=== PATIENT | female | born 1930 | race Caucasian/White ===

== ENCOUNTER 2016-10-28 16:15 | Inpatient (IN) | payer MEDICARE ==
[~2016-10-28] VITALS: Ht 165.1 cm; Wt 81.2 kg
[~2016-10-28 16:15] MED LIST: DUONEB3 ML INH; ESCI10TA54 PO; ESCI5TAB10 PO; FERR-63 PO; LUBI24CA5 PO; MULT-1146 PO; POLY17PO3 PO; SYN200 PO; THE3 PO; TRIA1CAP6 PO
[2016-10-28] MEDS ORDERED: ALPRAZOLAM 0.25 MG TABLET PO PRN (17:45)
[2016-10-28] MEDS ORDERED: DEXTROSE 50% WATER 50ML SYRINGE IV PRN (18:00)
[2016-10-28 18:28] VITALS: BP 129/56
[2016-10-28 20:00] VITALS: BP 127/69
[2016-10-28] MEDS: IPRATROPIUM/ALBUTEROL 0.5-3(2.5)MG/3ML NEB HHN SCH (20:13)
[2016-10-28] MEDS ORDERED: INSULIN LISPRO 100 UNITS/ML SUBCUT SCH (21:00)
[2016-10-28] MEDS: INSULIN LISPRO 100 UNITS/ML SUBCUT SCH (21:00)
[2016-10-28] MEDS: BLOOD SUGAR DIAGNOSTIC STRIP TEST SCH (21:00)
[2016-10-28] MEDS: ENOXAPARIN 30MG/0.3ML SYR SUBCUT SCH (22:33)
[2016-10-29] MEDS: IPRATROPIUM/ALBUTEROL 0.5-3(2.5)MG/3ML NEB HHN SCH ×4 (02:14→20:46)
[2016-10-29] MEDS: BLOOD SUGAR DIAGNOSTIC STRIP TEST SCH ×4 (06:10→20:54)
[2016-10-29] MEDS: LEVOTHYROXINE SODIUM 100MCG TABLET PO SCH (06:11)
[2016-10-29] MEDS: INSULIN LISPRO 100 UNITS/ML SUBCUT SCH ×4 (06:43→20:54)
[2016-10-29 07:21] VITALS: BP 162/72
[2016-10-29 07:55] LABS: BASOPHILS % 1.7 % (0.0-2.0); EOSINOPHILS % 5.4 % (0.0-5.0); HEMATOCRIT. 29.7 % (36.0-48.0); HEMOGLOBIN. 9.6 g/dL (12.0-16.0); LYMPHOCYTES % 21.4 % (20.0-50.0); MEAN CORPUSCULAR HEMOGLOBIN 30.7 pg (28.0-32.0); MEAN CORPUSCULAR VOLUME 95.1 fL (81.0-99.0); MEAN PLATELET VOLUME 7.4 fl (7.4-10.4); MONOCYTES % 9.5 % (2.0-8.0); PLATELET 219 x1000/uL (130-400); RED BLOOD CELL COUNT 3.12 mill/uL (4.2-5.4); RED CELL DISTRIBUTION WIDTH 16.3 % (11.6-14.6)
[2016-10-29] MEDS: FERROUS SULFATE 325MG TABLET PO SCH ×2 (08:15→17:13)
[2016-10-29] MEDS: POLYETHYLENE GLYCOL 3350 (17GM) 1 DOSE PACK PO SCH ×3 (08:15→20:53)
[2016-10-29] MEDS: ENOXAPARIN 30MG/0.3ML SYR SUBCUT SCH (08:15)
[2016-10-29] MEDS: POTASSIUM CHLORIDE 20MEQ TABLET SR PO SCH (08:15)
[2016-10-29 08:38] LABS: PREALBUMIN 18.7 mg/dL (20.0-40.0)
[2016-10-29] MEDS: LACTULOSE 20G/30ML UDC PO SCH ×3 (09:39→16:53)
[2016-10-29] MEDS: DOCUSATE SODIUM 100MG CAPSULE PO SCH (17:13)
[2016-10-29 20:49] VITALS: BP 126/96
[2016-10-30 00:06] LABS: CLARITY URINE CLEAR (CLEAR); COLOR URINE YELLOW (YELLOW); GLUCOSE URINE NEGATIVE (NEGATIVE); KETONES URINE NEGATIVE (NEGATIVE); LEUKOCYTE ESTERASE URINE 1+ (NEGATIVE); NITRITE URINE NEGATIVE (NEGATIVE); OCCULT BLOOD URINE NEGATIVE (NEGATIVE); PROTEIN URINE NEGATIVE (NEGATIVE); SPECIFIC GRAVITY URINE 1.011 (1.005-1.030); UROBILINOGEN URINE 0.2 E.U./dL (0.2-1.0)
[2016-10-30] MEDS: IPRATROPIUM/ALBUTEROL 0.5-3(2.5)MG/3ML NEB HHN SCH ×4 (01:23→21:07)
[2016-10-30] MEDS: LEVOTHYROXINE SODIUM 100MCG TABLET PO SCH (06:17)
[2016-10-30] MEDS: BLOOD SUGAR DIAGNOSTIC STRIP TEST SCH ×4 (06:19→20:51)
[2016-10-30 07:01] LABS: BASOPHILS % 1.1 % (0.0-2.0); EOSINOPHILS % 5.1 % (0.0-5.0); HEMATOCRIT. 29.6 % (36.0-48.0); HEMOGLOBIN. 9.7 g/dL (12.0-16.0); MEAN CORPUSCULAR HEMOGLOBIN 31.1 pg (28.0-32.0); MEAN CORPUSCULAR VOLUME 94.8 fL (81.0-99.0); MEAN PLATELET VOLUME 6.8 fl (7.4-10.4); MONOCYTES % 9.9 % (2.0-8.0); NEUTROPHILS % 61.9 % (40.0-76.0); PLATELET 211 x1000/uL (130-400); RED BLOOD CELL COUNT 3.12 mill/uL (4.2-5.4); RED CELL DISTRIBUTION WIDTH 16.7 % (11.6-14.6)
[2016-10-30] MEDS: INSULIN LISPRO 100 UNITS/ML SUBCUT SCH ×4 (07:02→20:51)
[2016-10-30 07:19] VITALS: BP 147/66
[2016-10-30 08:00] LABS: CARBON DIOXIDE 27 mEq/L (21-32); CHLORIDE 102 mEq/L (98-107); PHOSPHORUS 3.4 mg/dL (2.5-4.9)
[2016-10-30 08:10] LABS: HDL CHOLESTEROL 47 mg/dL (40-59); LDL CHOLESTEROL 84 mg/dL (5-100); TOTAL IRON BINDING CAPACITY 274 ug/dL (250-450)
[2016-10-30 08:16] LABS: FOLIC ACID (FOLATE) SERUM 17.2 ng/mL (>5.38)
[2016-10-30] MEDS: FERROUS SULFATE 325MG TABLET PO SCH ×2 (08:42→16:49)
[2016-10-30] MEDS: POTASSIUM CHLORIDE 20MEQ TABLET SR PO SCH (08:42)
[2016-10-30] MEDS: DOCUSATE SODIUM 100MG CAPSULE PO SCH ×2 (08:43→16:49)
[2016-10-30] MEDS: ENOXAPARIN 30MG/0.3ML SYR SUBCUT SCH (08:43)
[2016-10-30] MEDS: LACTULOSE 20G/30ML UDC PO SCH ×3 (14:00→16:51)
[2016-10-30] MEDS: CYANOCOBALAMIN 1000MCG/ML VIAL IM SCH (16:50)
[2016-10-30 20:00] VITALS: BP 142/67
[2016-10-30] MEDS ORDERED: IRON SUCROSE COMPLEX 100 MG in SODIUM CHLORIDE 0.9% 100 ML IV SCH (20:00)
[2016-10-30] MEDS: POLYETHYLENE GLYCOL 3350 (17GM) 1 DOSE PACK PO SCH (20:51)
[2016-10-31] MEDS: IPRATROPIUM/ALBUTEROL 0.5-3(2.5)MG/3ML NEB HHN SCH ×4 (02:09→21:03)
[2016-10-31] MEDS: LEVOTHYROXINE SODIUM 100MCG TABLET PO SCH (06:30)
[2016-10-31] MEDS: BLOOD SUGAR DIAGNOSTIC STRIP TEST SCH ×4 (06:32→21:40)
[2016-10-31] MEDS: INSULIN LISPRO 100 UNITS/ML SUBCUT SCH ×4 (07:04→21:00)
[2016-10-31 08:00] VITALS: BP 140/64
[2016-10-31] MEDS: CYANOCOBALAMIN 1000MCG/ML VIAL IM SCH (09:05)
[2016-10-31] MEDS: POTASSIUM CHLORIDE 20MEQ TABLET SR PO SCH (09:05)
[2016-10-31] MEDS: DOCUSATE SODIUM 100MG CAPSULE PO SCH ×2 (09:05→16:56)
[2016-10-31] MEDS: FERROUS SULFATE 325MG TABLET PO SCH ×3 (09:05→16:56)
[2016-10-31] MEDS: ENOXAPARIN 40MG/0.4ML SYR SUBCUT SCH (09:05)
[2016-10-31 13:49] LABS: BASOPHILS % 1.2 % (0.0-2.0); EOSINOPHILS % 4.2 % (0.0-5.0); HEMATOCRIT. 30.7 % (36.0-48.0); HEMOGLOBIN. 10.4 g/dL (12.0-16.0); MEAN CORPUSCULAR HEMOGLOBIN 32.2 pg (28.0-32.0); MEAN CORPUSCULAR VOLUME 94.6 fL (81.0-99.0); MEAN PLATELET VOLUME 7.4 fl (7.4-10.4); MONOCYTES % 8.9 % (2.0-8.0); NEUTROPHILS % 69.7 % (40.0-76.0); PLATELET 207 x1000/uL (130-400); RED BLOOD CELL COUNT 3.24 mill/uL (4.2-5.4); RED CELL DISTRIBUTION WIDTH 16.5 % (11.6-14.6)
[2016-10-31] MEDS: LACTULOSE 20G/30ML UDC PO SCH ×2 (16:56→21:39)
[2016-10-31 20:08] VITALS: BP 153/72
[2016-10-31] MEDS: POLYETHYLENE GLYCOL 3350 (17GM) 1 DOSE PACK PO SCH (21:00)
[2016-10-31] MEDS: DILTIAZEM HCL 30MG TABLET PO SCH (21:40)
[2016-11-01] MEDS: IPRATROPIUM/ALBUTEROL 0.5-3(2.5)MG/3ML NEB HHN SCH ×3 (01:38→20:49)
[2016-11-01] MEDS: DILTIAZEM HCL 30MG TABLET PO SCH ×3 (06:00→21:43)
[2016-11-01] MEDS: LEVOTHYROXINE SODIUM 100MCG TABLET PO SCH (06:12)
[2016-11-01] MEDS: BLOOD SUGAR DIAGNOSTIC STRIP TEST SCH ×4 (06:12→21:41)
[2016-11-01 07:11] LABS: BASOPHILS % 1.3 % (0.0-2.0); EOSINOPHILS % 4.8 % (0.0-5.0); HEMATOCRIT. 28.3 % (36.0-48.0); HEMOGLOBIN. 9.3 g/dL (12.0-16.0); LYMPHOCYTES % 23.4 % (20.0-50.0); MEAN CORPUSCULAR VOLUME 94.8 fL (81.0-99.0); MEAN PLATELET VOLUME 7.3 fl (7.4-10.4); MONOCYTES % 10.6 % (2.0-8.0); NEUTROPHILS % 59.9 % (40.0-76.0); PLATELET 192 x1000/uL (130-400); RED BLOOD CELL COUNT 2.99 mill/uL (4.2-5.4); RED CELL DISTRIBUTION WIDTH 16.5 % (11.6-14.6)
[2016-11-01 08:00] VITALS: BP 158/74
[2016-11-01] MEDS: LACTULOSE 20G/30ML UDC PO SCH ×4 (08:47→23:00)
[2016-11-01] MEDS: POTASSIUM CHLORIDE 20MEQ TABLET SR PO SCH (08:48)
[2016-11-01] MEDS: DOCUSATE SODIUM 100MG CAPSULE PO SCH ×2 (08:48→17:11)
[2016-11-01] MEDS: FERROUS SULFATE 325MG TABLET PO SCH ×3 (08:48→17:11)
[2016-11-01] MEDS: CYANOCOBALAMIN 1000MCG/ML VIAL IM SCH (08:48)
[2016-11-01] MEDS: INSULIN LISPRO 100 UNITS/ML SUBCUT SCH ×4 (08:48→21:00)
[2016-11-01] MEDS: ENOXAPARIN 40MG/0.4ML SYR SUBCUT SCH (08:48)
[2016-11-01 20:00] VITALS: BP 126/63
[2016-11-01] MEDS: POLYETHYLENE GLYCOL 3350 (17GM) 1 DOSE PACK PO SCH (21:00)
[2016-11-02] MEDS: IPRATROPIUM/ALBUTEROL 0.5-3(2.5)MG/3ML NEB HHN SCH ×3 (01:07→20:31)
[2016-11-02] MEDS: BLOOD SUGAR DIAGNOSTIC STRIP TEST SCH ×4 (06:18→21:07)
[2016-11-02] MEDS: LEVOTHYROXINE SODIUM 100MCG TABLET PO SCH (06:19)
[2016-11-02] MEDS: DILTIAZEM HCL 30MG TABLET PO SCH ×3 (06:20→21:11)
[2016-11-02] MEDS: INSULIN LISPRO 100 UNITS/ML SUBCUT SCH ×4 (07:01→21:00)
[2016-11-02 08:00] VITALS: BP 116/65
[2016-11-02] MEDS: CYANOCOBALAMIN 1000MCG/ML VIAL IM SCH (08:54)
[2016-11-02] MEDS: POTASSIUM CHLORIDE 20MEQ TABLET SR PO SCH (08:54)
[2016-11-02] MEDS: DOCUSATE SODIUM 100MG CAPSULE PO SCH ×2 (08:54→16:58)
[2016-11-02] MEDS: FERROUS SULFATE 325MG TABLET PO SCH ×3 (08:54→16:58)
[2016-11-02] MEDS: ENOXAPARIN 40MG/0.4ML SYR SUBCUT SCH (08:55)
[2016-11-02 10:11] LABS: 25-HYDROXY VITAMIN D3 18 ng/mL (.)
[2016-11-02 20:00] VITALS: BP 115/58
[2016-11-02] MEDS: POLYETHYLENE GLYCOL 3350 (17GM) 1 DOSE PACK PO SCH (21:09)
[2016-11-03] MEDS: IPRATROPIUM/ALBUTEROL 0.5-3(2.5)MG/3ML NEB HHN SCH ×4 (01:59→21:02)
[2016-11-03] MEDS: BLOOD SUGAR DIAGNOSTIC STRIP TEST SCH ×4 (06:24→21:35)
[2016-11-03] MEDS: DILTIAZEM HCL 30MG TABLET PO SCH ×3 (06:25→21:11)
[2016-11-03] MEDS: LEVOTHYROXINE SODIUM 100MCG TABLET PO SCH (06:27)
[2016-11-03 08:30] VITALS: BP 149/74
[2016-11-03] MEDS: INSULIN LISPRO 100 UNITS/ML SUBCUT SCH ×4 (09:00→21:00)
[2016-11-03] MEDS: FERROUS SULFATE 325MG TABLET PO SCH ×3 (09:30→16:42)
[2016-11-03] MEDS: POTASSIUM CHLORIDE 20MEQ TABLET SR PO SCH (09:30)
[2016-11-03] MEDS: DOCUSATE SODIUM 100MG CAPSULE PO SCH ×2 (09:30→16:41)
[2016-11-03] MEDS: ENOXAPARIN 40MG/0.4ML SYR SUBCUT SCH (09:32)
[2016-11-03] MEDS: SODIUM CHL 0.45% + KCL 20MEQ/L 1,000 ML IV SCH ×2 (11:30→21:11)
[2016-11-03 20:00] VITALS: BP 136/59
[2016-11-03] MEDS: POLYETHYLENE GLYCOL 3350 (17GM) 1 DOSE PACK PO SCH (21:11)
[2016-11-04] MEDS: IPRATROPIUM/ALBUTEROL 0.5-3(2.5)MG/3ML NEB HHN SCH ×2 (02:54→07:37)
[2016-11-04] MEDS: LEVOTHYROXINE SODIUM 100MCG TABLET PO SCH (06:18)
[2016-11-04] MEDS: DILTIAZEM HCL 30MG TABLET PO SCH ×2 (06:18→13:29)
[2016-11-04] MEDS: BLOOD SUGAR DIAGNOSTIC STRIP TEST SCH ×2 (06:21→11:56)
[2016-11-04] MEDS: INSULIN LISPRO 100 UNITS/ML SUBCUT SCH ×2 (07:04→11:56)
[2016-11-04 07:29] VITALS: BP 123/64
[2016-11-04] MEDS: SODIUM CHL 0.45% + KCL 20MEQ/L 1,000 ML IV SCH (07:44)
[2016-11-04] MEDS: ENOXAPARIN 40MG/0.4ML SYR SUBCUT SCH (08:47)
[2016-11-04] MEDS: FERROUS SULFATE 325MG TABLET PO SCH ×2 (08:47→12:00)
[2016-11-04] MEDS: POTASSIUM CHLORIDE 20MEQ TABLET SR PO SCH (08:47)
[2016-11-04] MEDS: DOCUSATE SODIUM 100MG CAPSULE PO SCH (08:47)
[2016-11-04 10:20] LABS: BASOPHILS % 1.1 % (0.0-2.0); EOSINOPHILS % 3.6 % (0.0-5.0); HEMOGLOBIN. 10.1 g/dL (12.0-16.0); MEAN CORPUSCULAR HEMOGLOBIN 31.3 pg (28.0-32.0); MEAN CORPUSCULAR VOLUME 96.2 fL (81.0-99.0); MEAN PLATELET VOLUME 7.3 fl (7.4-10.4); NEUTROPHILS % 65.3 % (40.0-76.0); PLATELET 179 x1000/uL (130-400); RED BLOOD CELL COUNT 3.22 mill/uL (4.2-5.4); RED CELL DISTRIBUTION WIDTH 16.3 % (11.6-14.6)
[2016-11-04 13:37] VITALS: BP 141/73
== END 2016-11-04 14:02 | disposition home or self-care (01) | DRG 551 ==
PROVIDERS: ADMIT Physical Medicine & Rehabilitation Spinal Cord Injury Medicine; ATTEND Internal Medicine Geriatric Medicine
DX: M48.02 Spinal stenosis, cervical region (principal); G82.50 Quadriplegia, unspecified; J96.10 Chronic respiratory failure, unspecified whether with hypoxia or hypercapnia; E11.51 Type 2 diabetes mellitus with diabetic peripheral angiopathy without gangrene; G95.29 Other cord compression; N39.0 Urinary tract infection, site not specified; E11.620 Type 2 diabetes mellitus with diabetic dermatitis; I50.9 Heart failure, unspecified; I11.0 Hypertensive heart disease with heart failure; R29.6 Repeated falls; J44.9 Chronic obstructive pulmonary disease, unspecified; I73.9 Peripheral vascular disease, unspecified; M47.892 Other spondylosis, cervical region; L30.9 Dermatitis, unspecified; I95.1 Orthostatic hypotension; E78.5 Hyperlipidemia, unspecified; E03.9 Hypothyroidism, unspecified; D64.9 Anemia, unspecified; R26.9 Unspecified abnormalities of gait and mobility; K57.90 Diverticulosis of intestine, part unspecified, without perforation or abscess without bleeding; D50.9 Iron deficiency anemia, unspecified; E86.0 Dehydration; D63.8 Anemia in other chronic diseases classified elsewhere; E87.6 Hypokalemia; G31.84 Mild cognitive impairment of uncertain or unknown etiology; F41.1 Generalized anxiety disorder; I27.2 Other secondary pulmonary hypertension; F32.9 Major depressive disorder, single episode, unspecified; E66.9 Obesity, unspecified; E61.1 Iron deficiency; F06.31 Mood disorder due to known physiological condition with depressive features; R53.81 Other malaise; Z87.891 Personal history of nicotine dependence; Z79.899 Other long term (current) drug therapy; Z82.49 Family history of ischemic heart disease and other diseases of the circulatory system; Z99.81 Dependence on supplemental oxygen
CPT/HCPCS: 36415; 80048; 80053; 80061; 81001; 81003; 82270; 82306; 82607; 82728; 82746; 82962; 83036; 83540; 83550; 83735; 84100; 84134; 84443; 84630; 85025; 87086; 92523; 93970; 94640; 94664; 97110; 97116; 97162; 97166; 97530; 97532; 97535; A6261; C1893; J1650; J3420; J3480; J7050; J7620